=== PATIENT | female | born 1935 | race Caucasian/White ===

== ENCOUNTER 2016-05-28 11:01 | Inpatient (IN) ==
--- NOTE | 2016-05-28 13:11 | Internal Med History&Physical ---
Date of Encounter: 05/28/16 Time of Encounter: 13:09 Internal Medicine - H&P: HPI Chief complaint: Patient brought to [facility] rehabilitation status pos Admitted From: Hospital to Hospital Transfer Plans for Post Hospital Care: Home History of present illness: Ms. Moy is a 80 year old female She is here for rehabilitation. Past Med Surg Social Fam HX - Past Medical History Medical history: arthritis, hyperlipidemia, thyroid disease Psychiatric history: no psych history - Past Surgical History Surgical History: orthopedic, other (Patient knowledge is a right total shoulder replacement and colonoscopy) - Social History Smoking Status: Never smoker Smokeless Tobacco Status: No Alcohol use: none Drug use: none - Family History Mother Hx Family Cardiac Disorders: Yes Internal Medicine - H&P: Meds Aspirin Enteric Coated [Aspirin EC] 325 mg PO DAILY #21 tablet. 05/24/16 [Rx] OxyCODONE Immed Rel [Roxicodone 5 MG] 5 - 10 mg PO Q6HR PRN #40 tablet 05/24/16 [Rx] Aspirin 81 mg PO DAILY 05/25/16 [History] Atorvastatin Calcium [Lipitor] 20 mg PO HS 05/25/16 [History] Celecoxib [Celebrex] 200 mg PO DAILY 05/25/16 [History] Latanoprost [Xalatan] 1 drop BOTH EYES QPM 05/25/16 [History] Levothyroxine [Synthroid] 50 mcg PO 0630 05/25/16 [History] Meclizine HCl [Verticalm] 25 mg PO Q6H PRN 05/25/16 [History] Multivit-Min/FA/Lutein/Zeaxant [Icaps Mv Tablet] 2 tab PO DAILY 05/25/16 [ History] Psyllium [Metamucil Fiber Singles Packet] 1 packet PO DAILY 05/28/16 [History] Allergies No Known Allergies Allergy (Verified 05/25/16 08:34) All Systems PM: A 10-system review of systems was performed and is negative for pertinent findings except as documented above in the HPI. - Constitutional Vitals: Temp Pulse Resp BP Pulse Ox 97.9 F 75 18 110/70 95 05/28/16 11:38 05/28/16 11:38 05/28/16 11:38 05/28/16 11:38 05/28/16 11:38 - Head Head exam: Present: atraumatic, normocephalic - Neck Neck exam general surgery: Present: supple, trachea midline. Absent: lymphadenopathy - Respiratory Respiratory exam: Present: CTAB. Absent: accessory muscle use, rales, rhonchi, wheezes - Cardiovascular Cardiovascular exam: Present: RRR, +S1, +S2. Absent: diastolic murmur, gallop, rubs, systolic murmur - GI/Abdominal GI/Abdominal exam: Present: normal bowel sounds, soft, no peritoneal signs. Absent: distended, tenderness
[2016-05-28] MEDS: *HR* OxyCODONE/APAP 5/325 TABLET PO PRN ×2 (13:51→23:25)
[2016-05-28] MEDS ORDERED: Latanoprost 2.5 ML BOTTLE BOTH EYES SCH (18:00)
[2016-05-28] MEDS: Latanoprost 2.5 ML BOTTLE BOTH EYES SCH (20:19)
[2016-05-28] MEDS: MOM Conc 10 ML UD.LIQ PO PRN (20:20)
[2016-05-29 05:19] LABS: Basophils % 0.5 %; Eosinophils # 0.2 K/mcL (0.0-0.6); Eosinophils % 3.9 %; Hematocrit 23.5 % (35.3-44.9); Immature Granulocytes % 0.3 % (0-4); Lymphocytes # 1.2 K/mcL (0.6-4.6); Lymphocytes % 19.9 %; Mean Corpuscular Volume 91.1 fL (83.0-100.0); Monocytes # 0.9 K/mcL (0.0-1.3); Monocytes % 14.9 %; Neutrophils # 3.5 K/mcL (1.6-8.9); Platelet Count 168 K/mcL (140-400); Red Blood Count 2.58 M/mcL (3.82-4.97); Red Cell Distribution Width 12.4 % (11.5-14.5); Segmented Neutrophils % 60.5 %
[2016-05-29 05:20] LABS: INR 1.1; Prothrombin Time 12.4 Seconds (9.4-12.1)
[2016-05-29 05:23] LABS: Activated Partial Thrombo Time 28.6 Seconds (26.0-36.0)
[2016-05-29 05:28] LABS: BUN/Creatinine Ratio 25 (6-26); Blood Urea Nitrogen 16 mg/dL (7-20); Calcium 8.7 mg/dL (8.6-10.8); Carbon Dioxide 27 mEq/L (19-29); Chloride 101 mEq/L (98-109); Glucose 104 mg/dL (70-99); Osmolality,Calculated 285 (280-300); Potassium 4.4 mEq/L (3.5-4.5); Sodium 137 mEq/L (136-145); eGFR For African Americans > 60 (> 60); eGFR For Non-African Americans > 60 (> 60)
[2016-05-29] MEDS: *HR* OxyCODONE/APAP 5/325 TABLET PO PRN ×2 (06:10→12:53)
[2016-05-29] MEDS: Aspirin Enteric Coated 325 MG Tablet PO SCH (08:08)
[2016-05-29] MEDS: Psyllium 1 PACKET POWD.PACK PO SCH (08:08)
[2016-05-29] MEDS: Celecoxib 200 MG CAPSULE PO SCH (08:08)
[2016-05-29] MEDS: Multivit/Ca/Min/Fe/FA 1 TAB TABLET PO SCH (08:08)
[2016-05-29] MEDS: MOM Conc 10 ML UD.LIQ PO PRN (08:15)
[2016-05-29] MEDS: Latanoprost 2.5 ML BOTTLE BOTH EYES SCH (19:47)
[2016-05-30] MEDS: *HR* OxyCODONE/APAP 5/325 TABLET PO PRN ×4 (02:47→21:00)
[2016-05-30] MEDS: Multivit/Ca/Min/Fe/FA 1 TAB TABLET PO SCH (08:56)
[2016-05-30] MEDS: MOM Conc 10 ML UD.LIQ PO PRN (08:57)
[2016-05-30] MEDS: Psyllium 1 PACKET POWD.PACK PO SCH (08:57)
[2016-05-30] MEDS: Aspirin Enteric Coated 325 MG Tablet PO SCH (08:57)
[2016-05-30] MEDS: Celecoxib 200 MG CAPSULE PO SCH (08:57)
--- NOTE | 2016-05-30 17:29 | Internal Med Progress Note ---
Date of Encounter: 05/30/16 Time of Encounter: 17:27 - Time Spent With Patient less than 15 minutes - Subjective Interval history: Patient's states that she is doing well. Mild postop pain. She complains of constipation. No fever no shortness of breath no chest pain. Diagnosis. Status post right total knee replacement. Anemia. Today's hemoglobin is 8. Patient doing well with PT OT. We will continue to work on gait, balance in transfer. We will add Mag citrate for her constipation. - Constitutional Vitals: Temp Pulse Resp BP Pulse Ox 98.2 F 71 16 144/77 95 05/30/16 07:00 05/30/16 07:00 05/30/16 07:00 05/30/16 07:00 05/30/16 07:00 General appearance: Present: A&O X 3, pleasant, no acute distress - Respiratory Respiratory exam: Present: CTAB. Absent: accessory muscle use, rales, rhonchi, wheezes - Cardiovascular Cardiovascular exam: Present: RRR, +S1, +S2. Absent: diastolic murmur, gallop, rubs, systolic murmur - GI/Abdominal GI/Abdominal exam: Present: normal bowel sounds, soft, no peritoneal signs. Absent: distended, tenderness - Expanded Lower Extremities Exam Knee exam: Present: swelling, tenderness. Absent: erythema, warmth Internal Medicine: Result - Labs CBC & Chem 7: 05/29/16 05:05 05/29/16 05:05 - ABG Interpretation ABG results: PT/INR, D-dimer PT 12.4 Seconds (9.4-12.1) H 05/29/16 05:05 Consult Discharge Plan - Plan Instructions: Total Knee Replacement (DC) Additional Instructions: Discharge Instructions: Total Knee Replacement Please call [facility] ([phone]), your Primary Care Physician, or report to the Emergency Room if you have any of the following symptoms: Nausea, vomiting, fever greater that 101.5, swelling, chest pain, shortness of breath, increased pain/redness/drainage/odor for your incision site, numbness/ tingling, or any other concerning symptoms. ACTIVITY:Weight-bearing as tolerated. You may progress off support (cruthches or walker) as tolerated. MEDICATIONS: Upon discharge resume your home medications. Take all the medications as prescribed. Take a stool softener if taking narcotic pain medications. Stool softeners are only effective if you drink enough fluids. Drink 6-8 glass of water or fluids a day, unless this is not allowed for another health problem. Despite using stool softeners, if you haven't had a bowel movement in 3 days, please switch to a gentle laxative. Gentle laxatives are sold over the counter. You should have a bowel movement within 24 hours, if not call the office. You will be discharged from the hospital with a prescription for pain medication. You are encouraged to decrease the use of narcotic pain medication as tolerated. Should you require a refill, please call the office. [facility] prescribes narcotic pain medication for only 4-6 weeks after surgery. If you require pain medication beyond this time periord, you may be referred to your Primary Care Physician or to the Pain Clinic for further evaluation. Plan ahead for refills on pain medication as many narcotics either need to be picked up at the office or mailed. It is best to call 48-72 hours in advance of needing a prescription refill so you don't run out of medication. To help control the post-operative pain, you may take NSAIDs (Aleve,Advil, Motrin, ibuprofen, naprosyn) or Tylenol as prescribed on the bottle in addition to the pain medication. ANTICOAGULATION (blood thinners): Continue your Aspirin, Lovenox or Coumadin as prescribed to help prevent a blood clot in the leg or in the lungs. As long as your incision remains dry and you tolerate the NSAIDs (Aleve, Advil, Motrin, ibuprofen, naprosyn), it is OK to use the NSAIDS while you are taking your anticoagulation medication. Should your incision start to drain, stop the NSAID and contact our office. Common symptoms of blood clot in the legs include: localized pain, swelling, calf tenderness, redness or discoloration of the skin. Blood clot in the lung symptoms include: shortness of breath, rapid pulse, sweating, and chest pain that worsens with deep breathing, coughing up blood, lightheadedness, feelings of anxiety. If you experience any of these symptoms notify your physician immediately, go to the emergency room, or if having trouble breathing, call 911. WOUND CARE: Leave the dressing on for 7 days. You may change the dressing if it becomes saturated greater than 50%. You can shower but not a tub bath or submerge your incision in water. Wash your hands with antibacterial soap, rinse and dry prior to any wound care. If you have roverto the visiting nurse or rehab facility can remove the stapes 10-14 days after surgery [address] steri- strips across the wound. Leave the steri-strips in place until they fall off on their won. You may let water from the shower run on top of the steri-stirips. If you do not have a visiting nurse or rehab facility, you will need to return to the office at 10-14 days for the roverto to be removed. FOLLOW-UP: Please follow up with your surgeon in the orthopedic clinic in 4 weeks from the day of surgery. If you have roverto that need to be removed, you will need to come back to the office in 10-14 days from the day of surgery. Referrals: Tano Mcneil MD [Partnered Physician] - 06/23/16 8:30 am Nidhi Dorantes PAC [Physician Beck Operator] - 06/04/16 8:00 am Jared Moncada MD [Primary Care Provider] -
[2016-05-30] MEDS: Latanoprost 2.5 ML BOTTLE BOTH EYES SCH (21:01)
[2016-05-31] MEDS: *HR* OxyCODONE/APAP 5/325 TABLET PO PRN ×3 (03:36→23:36)
[2016-05-31] MEDS ORDERED: Tetrahydrozoline 15 ML BOTTLE RIGHT EYE PRN (08:39)
--- NOTE | 2016-05-31 09:03 | Internal Med Progress Note ---
Date of Encounter: 05/31/16 Time of Encounter: 09:03 - Time Spent With Patient less than 15 minutes - Subjective Interval history: Patient's states that she is doing well. Mild postop pain. She complains of constipation. No fever no shortness of breath no chest pain. Diagnosis. Status post right total knee replacement. Anemia. Today's hemoglobin is 8. Patient doing well with PT OT. We will continue to work on gait, balance in transfer. We will add Mag citrate for her constipation. - Constitutional Vitals: Temp Pulse Resp BP Pulse Ox 99.7 F H 77 18 159/80 96 05/31/16 07:00 05/31/16 07:00 05/31/16 07:00 05/31/16 07:00 05/31/16 07:00 General appearance: Present: A&O X 3, pleasant, no acute distress - Respiratory Respiratory exam: Present: CTAB. Absent: accessory muscle use, rales, rhonchi, wheezes - Cardiovascular Cardiovascular exam: Present: RRR, +S1, +S2. Absent: diastolic murmur, gallop, rubs, systolic murmur - GI/Abdominal GI/Abdominal exam: Present: normal bowel sounds, soft, no peritoneal signs. Absent: distended, tenderness - Expanded Lower Extremities Exam Knee exam: Present: tenderness. Absent: effusion, warmth Internal Medicine: Result - Labs CBC & Chem 7: 05/29/16 05:05 05/29/16 05:05 - ABG Interpretation ABG results: PT/INR, D-dimer PT 12.4 Seconds (9.4-12.1) H 05/29/16 05:05 Consult Discharge Plan - Plan Instructions: Total Knee Replacement (DC) Additional Instructions: Discharge Instructions: Total Knee Replacement Please call [facility] ([phone]), your Primary Care Physician, or report to the Emergency Room if you have any of the following symptoms: Nausea, vomiting, fever greater that 101.5, swelling, chest pain, shortness of breath, increased pain/redness/drainage/odor for your incision site, numbness/ tingling, or any other concerning symptoms. ACTIVITY:Weight-bearing as tolerated. You may progress off support (cruthches or walker) as tolerated. MEDICATIONS: Upon discharge resume your home medications. Take all the medications as prescribed. Take a stool softener if taking narcotic pain medications. Stool softeners are only effective if you drink enough fluids. Drink 6-8 glass of water or fluids a day, unless this is not allowed for another health problem. Despite using stool softeners, if you haven't had a bowel movement in 3 days, please switch to a gentle laxative. Gentle laxatives are sold over the counter. You should have a bowel movement within 24 hours, if not call the office. You will be discharged from the hospital with a prescription for pain medication. You are encouraged to decrease the use of narcotic pain medication as tolerated. Should you require a refill, please call the office. [facility] prescribes narcotic pain medication for only 4-6 weeks after surgery. If you require pain medication beyond this time periord, you may be referred to your Primary Care Physician or to the Pain Clinic for further evaluation. Plan ahead for refills on pain medication as many narcotics either need to be picked up at the office or mailed. It is best to call 48-72 hours in advance of needing a prescription refill so you don't run out of medication. To help control the post-operative pain, you may take NSAIDs (Aleve,Advil, Motrin, ibuprofen, naprosyn) or Tylenol as prescribed on the bottle in addition to the pain medication. ANTICOAGULATION (blood thinners): Continue your Aspirin, Lovenox or Coumadin as prescribed to help prevent a blood clot in the leg or in the lungs. As long as your incision remains dry and you tolerate the NSAIDs (Aleve, Advil, Motrin, ibuprofen, naprosyn), it is OK to use the NSAIDS while you are taking your anticoagulation medication. Should your incision start to drain, stop the NSAID and contact our office. Common symptoms of blood clot in the legs include: localized pain, swelling, calf tenderness, redness or discoloration of the skin. Blood clot in the lung symptoms include: shortness of breath, rapid pulse, sweating, and chest pain that worsens with deep breathing, coughing up blood, lightheadedness, feelings of anxiety. If you experience any of these symptoms notify your physician immediately, go to the emergency room, or if having trouble breathing, call 911. WOUND CARE: Leave the dressing on for 7 days. You may change the dressing if it becomes saturated greater than 50%. You can shower but not a tub bath or submerge your incision in water. Wash your hands with antibacterial soap, rinse and dry prior to any wound care. If you have roverto the visiting nurse or rehab facility can remove the stapes 10-14 [address] surgery [address] steri- strips across the wound. Leave the steri-strips in place until they fall off on their won. You may let water from the shower run on top of the steri-stirips. If you do not have a visiting nurse or rehab facility, you will need to return to the office at 10-14 days for the roverto to be removed. FOLLOW-UP: Please follow up with your surgeon in the orthopedic clinic in 4 weeks from the day of surgery. If you have roverto that need to be removed, you will need to come back to the office in 10-14 days from the day of surgery. Referrals: Tano Mcneil MD [Partnered Physician] - 06/23/16 8:30 am Nidhi Dorantes PAC [Physician Crystal Lapper] - 06/04/16 8:00 am Jared Moncada MD [Primary Care Provider] -
[2016-05-31] MEDS: MOM Conc 10 ML UD.LIQ PO PRN (09:13)
[2016-05-31] MEDS: Celecoxib 200 MG CAPSULE PO SCH (09:13)
[2016-05-31] MEDS: Multivit/Ca/Min/Fe/FA 1 TAB TABLET PO SCH (09:13)
[2016-05-31] MEDS: Aspirin Enteric Coated 325 MG Tablet PO SCH (09:13)
[2016-05-31] MEDS: Psyllium 1 PACKET POWD.PACK PO SCH (09:14)
[2016-05-31] MEDS: Latanoprost 2.5 ML BOTTLE BOTH EYES SCH (20:30)
[2016-06-01 05:28] LABS: Basophils % 0.7 %; Eosinophils # 0.3 K/mcL (0.0-0.6); Eosinophils % 5.3 %; Hemoglobin 8.4 g/dL (11.5-15.4); Immature Granulocytes % 0.2 % (0-4); Lymphocytes # 1.4 K/mcL (0.6-4.6); Lymphocytes % 22.6 %; Mean Corpuscular HGB Conc 33.6 g/dL (31.6-35.5); Mean Corpuscular Hemoglobin 30.7 pg (28.0-33.3); Mean Corpuscular Volume 91.2 fL (83.0-100.0); Monocytes # 0.8 K/mcL (0.0-1.3); Monocytes % 12.8 %; Neutrophils # 3.5 K/mcL (1.6-8.9); Platelet Count 291 K/mcL (140-400); Red Blood Count 2.74 M/mcL (3.82-4.97); Red Cell Distribution Width 12.5 % (11.5-14.5); Segmented Neutrophils % 58.4 %
[2016-06-01 05:38] LABS: BUN/Creatinine Ratio 26 (6-26); Blood Urea Nitrogen 16 mg/dL (7-20); Calcium 8.8 mg/dL (8.6-10.8); Carbon Dioxide 26 mEq/L (19-29); Chloride 102 mEq/L (98-109); Glucose 107 mg/dL (70-99); Osmolality,Calculated 284 (280-300); Potassium 4.8 mEq/L (3.5-4.5); Sodium 136 mEq/L (136-145); eGFR For African Americans > 60 (> 60); eGFR For Non-African Americans > 60 (> 60)
[2016-06-01] MEDS: Celecoxib 200 MG CAPSULE PO SCH (09:08)
[2016-06-01] MEDS: Multivit/Ca/Min/Fe/FA 1 TAB TABLET PO SCH (09:08)
[2016-06-01] MEDS: Aspirin Enteric Coated 325 MG Tablet PO SCH (09:08)
[2016-06-01] MEDS: Psyllium 1 PACKET POWD.PACK PO SCH ×2 (09:09→15:21)
--- NOTE | 2016-06-01 13:23 | Internal Med Progress Note ---
Date of Encounter: 06/01/16 Time of Encounter: 13:21 - Subjective Interval history: Besides doing very well will be discharged tomorrow after therapy. Will have a prescription pain meds and follow-up surgical - Constitutional Vitals: Temp Pulse Resp BP Pulse Ox 98.0 F 73 17 131/78 96 06/01/16 07:00 06/01/16 07:00 06/01/16 07:00 06/01/16 07:00 06/01/16 07:00 General appearance: Present: A&O X 3, pleasant, no acute distress - Head Head exam: Present: atraumatic, normal inspection, normocephalic - Neck Neck exam general surgery: Present: supple, trachea midline. Absent: lymphadenopathy - Respiratory Respiratory exam: Present: CTAB. Absent: accessory muscle use, rales, rhonchi, wheezes - Cardiovascular Cardiovascular exam: Present: RRR, +S1, +S2. Absent: diastolic murmur, gallop, rubs, systolic murmur Internal Medicine: Result - Labs CBC & Chem 7: 06/01/16 05:05 06/01/16 05:05 Labs: Short CBC 06/01/16 Range/Units 05:05 WBC 6.0 (4.3-11.1) K/mcL Hgb 8.4 L (11.5-15.4) g/dL Hct 25.0 L (35.3-44.9) % Plt Count 291 D (140-400) K/mcL Neutrophils # 3.5 (1.6-8.9) K/mcL BMP 06/01/16 05:05 Sodium 136 Potassium 4.8 H Chloride 102 Carbon Dioxide 26 BUN 16 Creatinine 0.61 Glucose 107 H Calcium 8.8 Labs look stable - ABG Interpretation ABG results: PT/INR, D-dimer PT 12.4 Seconds (9.4-12.1) H 05/29/16 05:05 Consult Discharge Plan - Plan Instructions: Total Knee Replacement (DC) Additional Instructions: Discharge Instructions: Total Knee Replacement Please call [facility] ([phone]), your Primary Care Physician, or report to the Emergency Room if you have any of the following symptoms: Nausea, vomiting, fever greater that 101.5, swelling, chest pain, shortness of breath, increased pain/redness/drainage/odor for your incision site, numbness/ tingling, or any other concerning symptoms. ACTIVITY:Weight-bearing as tolerated. You may progress off support (cruthches or walker) as tolerated. MEDICATIONS: Upon discharge resume your home medications. Take all the medications as prescribed. Take a stool softener if taking narcotic pain medications. Stool softeners are only effective if you drink enough fluids. Drink 6-8 glass of water or fluids a day, unless this is not allowed for another health problem. Despite using stool softeners, if you haven't had a bowel movement in 3 days, please switch to a gentle laxative. Gentle laxatives are sold over the counter. You should have a bowel movement within 24 hours, if not call the office. You will be discharged from the hospital with a prescription for pain medication. You are encouraged to decrease the use of narcotic pain medication as tolerated. Should you require a refill, please call the office. [facility] prescribes narcotic pain medication for only 4-6 weeks after surgery. If you require pain medication beyond this time periord, you may be referred to your Primary Care Physician or to the Pain Clinic for further evaluation. Plan ahead for refills on pain medication as many narcotics either need to be picked up at the office or mailed. It is best to call 48-72 hours in advance of needing a prescription refill so you don't run out of medication. To help control the post-operative pain, you may take NSAIDs (Aleve,Advil, Motrin, ibuprofen, naprosyn) or Tylenol as prescribed on the bottle in addition to the pain medication. ANTICOAGULATION (blood thinners): Continue your Aspirin, Lovenox or Coumadin as prescribed to help prevent a blood clot in the leg or in the lungs. As long as your incision remains dry and you tolerate the NSAIDs (Aleve, Advil, Motrin, ibuprofen, naprosyn), it is OK to use the NSAIDS while you are taking your anticoagulation medication. Should your incision start to drain, stop the NSAID and contact our office. Common symptoms of blood clot in the legs include: localized pain, swelling, calf tenderness, redness or discoloration of the skin. Blood clot in the lung symptoms include: shortness of breath, rapid pulse, sweating, and chest pain that worsens with deep breathing, coughing up blood, lightheadedness, feelings of anxiety. If you experience any of these symptoms notify your physician immediately, go to the emergency room, or if having trouble breathing, call 911. WOUND CARE: Leave the dressing on for 7 days. You may change the dressing if it becomes saturated greater than 50%. You can shower but not a tub bath or submerge your incision in water. Wash your hands with antibacterial soap, rinse and dry prior to any wound care. If you have roverto the visiting nurse or rehab facility can remove the stapes 10-14 days [address] surgery [address] steri- strips across the wound. Leave the steri-strips in place until they fall off on their won. You may let water from the shower run on top of the steri-stirips. If you do not have a visiting nurse or rehab facility, you will need to return to the office at 10-14 days for the roverto to be removed. FOLLOW-UP: Please follow up with your surgeon in the orthopedic clinic in 4 weeks from the day of surgery. If you have roverto that need to be removed, you will need to come back to the office in 10-14 days from the day of surgery. Referrals: Tano Mcneil MD [Partnered Physician] - 06/23/16 8:30 am Nidhi Dorantes PAC [Physician Sleeping Room Cleaner] - 06/04/16 8:00 am Jared Moncada MD [Primary Care Provider] -
[2016-06-01] MEDS: Latanoprost 2.5 ML BOTTLE BOTH EYES SCH (21:16)
[2016-06-01] MEDS: *HR* OxyCODONE/APAP 5/325 TABLET PO PRN (23:40)
[2016-06-02 07:29] VITALS: BP 130/61
[2016-06-02] MEDS: Aspirin Enteric Coated 325 MG Tablet PO SCH (07:57)
[2016-06-02] MEDS: Psyllium 1 PACKET POWD.PACK PO SCH (07:57)
[2016-06-02] MEDS: Multivit/Ca/Min/Fe/FA 1 TAB TABLET PO SCH (07:57)
[2016-06-02] MEDS: Celecoxib 200 MG CAPSULE PO SCH (07:57)
--- NOTE | 2016-06-02 11:38 | Discharge Summary ---
Date of Encounter: 06/02/16 Time of Encounter: 11:36 - Discharge Medications Home Medications: Aspirin Enteric Coated [Aspirin EC] 325 mg PO DAILY #21 tablet. 05/24/16 [Rx] OxyCODONE Immed Rel [Roxicodone 5 MG] 5 - 10 mg PO Q6HR PRN #40 tablet 05/24/16 [Rx] Aspirin 81 mg PO DAILY 05/25/16 [History] Atorvastatin Calcium [Lipitor] 20 mg PO HS 05/25/16 [History] Celecoxib [Celebrex] 200 mg PO DAILY 05/25/16 [History] Latanoprost [Xalatan] 1 drop BOTH EYES QPM 05/25/16 [History] Levothyroxine [Synthroid] 50 mcg PO 0630 05/25/16 [History] Meclizine HCl [Verticalm] 25 mg PO Q6H PRN 05/25/16 [History] Multivit-Min/FA/Lutein/Zeaxant [Icaps Mv Tablet] 2 tab PO DAILY 05/25/16 [ History] Psyllium [Metamucil Fiber Singles Packet] 1 packet PO DAILY 05/28/16 [History] Allergies/Adverse Reactions: Allergies No Known Allergies Allergy (Verified 05/25/16 08:34) Date of admission: 05/28/16 11:02 Primary care physician: Jared Moncada MD Consults: 05/28/16 12:54 Consult to Occupational Therapy [CONS] Routine Comment: Evaluate, develop and implement POC Consult to Physical Medicine/Rehab [CONS] Routine Reason for Consult: s/p right total knee Call Completed: Yes Consult to Physical Therapy [CONS] Routine Comment: Evaluate, develop and implement POC Consult to Recreational Therapy [CONS] Routine Comment: Evaluate, develop and implement POC Consult to Regulator Mechanic [CONS] Routine Reason for SW Consult: d/c planning s/p rtk Discharging clinician: Deven Saucedo - Patient Status Disposition: Home, Self-Care Condition: Good Functional capacity at discharge: uses cane/walker Overall status at discharge: patient is progressing back to baseline - Discharge Instructions Instructions: Total Knee Replacement (DC) Follow Up With: Tano Mcneil MD [Partnered Physician] - 06/23/16 8:30 am Nidhi Dorantes PAC [Physician Rn Telephonic] - 06/04/16 8:00 am Jared Moncada MD [Primary Care Provider] - Additional Instructions: Discharge Instructions: Total Knee Replacement Please call [facility] ([phone]), your Primary Care Physician, or report to the Emergency Room if you have any of the following symptoms: Nausea, vomiting, fever greater that 101.5, swelling, chest pain, shortness of breath, increased pain/redness/drainage/odor for your incision site, numbness/ tingling, or any other concerning symptoms. ACTIVITY:Weight-bearing as tolerated. You may progress off support (cruthches or walker) as tolerated. MEDICATIONS: Upon discharge resume your home medications. Take all the medications as prescribed. Take a stool softener if taking narcotic pain medications. Stool softeners are only effective if you drink enough fluids. Drink 6-8 glass of water or fluids a day, unless this is not allowed for another health problem. Despite using stool softeners, if you haven't had a bowel movement in 3 days, please switch to a gentle laxative. Gentle laxatives are sold over the counter. You should have a bowel movement within 24 hours, if not call the office. You will be discharged from the hospital with a prescription for pain medication. You are encouraged to decrease the use of narcotic pain medication as tolerated. Should you require a refill, please call the office. [facility] prescribes narcotic pain medication for only 4-6 weeks after surgery. If you require pain medication beyond this time periord, you may be referred to your Primary Care Physician or to the Pain Clinic for further evaluation. Plan ahead for refills on pain medication as many narcotics either need to be picked up at the office or mailed. It is best to call 48-72 hours in advance of needing a prescription refill so you don't run out of medication. To help control the post-operative pain, you may take NSAIDs (Aleve,Advil, Motrin, ibuprofen, naprosyn) or Tylenol as prescribed on the bottle in addition to the pain medication. ANTICOAGULATION (blood thinners): Continue your Aspirin, Lovenox or Coumadin as prescribed to help prevent a blood clot in the leg or in the lungs. As long as your incision remains dry and you tolerate the NSAIDs (Aleve, Advil, Motrin, ibuprofen, naprosyn), it is OK to use the NSAIDS while you are taking your anticoagulation medication. Should your incision start to drain, stop the NSAID and contact our office. Common symptoms of blood clot in the legs include: localized pain, swelling, calf tenderness, redness or discoloration of the skin. Blood clot in the lung symptoms include: shortness of breath, rapid pulse, sweating, and chest pain that worsens with deep breathing, coughing up blood, lightheadedness, feelings of anxiety. If you experience any of these symptoms notify your physician immediately, go to the emergency room, or if having trouble breathing, call 911. WOUND CARE: Leave the dressing on for 7 days. You may change the dressing if it becomes saturated greater than 50%. You can shower but not a tub bath or submerge your incision in water. Wash your hands with antibacterial soap, rinse and dry prior to any wound care. If you have roverto the visiting nurse or rehab facility can remove the stapes 10-14 days after surgery and place steri- strips across the wound. Leave the steri-strips in place until they fall off on their won. You may let water from the shower run on top of the steri-stirips. If you do not have a visiting nurse or rehab facility, you will need to return to the office at 10-14 days for the roverto to be removed. FOLLOW-UP: Please follow up with your surgeon in the orthopedic clinic in 4 weeks from the day of surgery. If you have roverto that need to be removed, you will need to come back to the office in 10-14 days from the day of surgery. - Diet and Activity Activity: ambulate only with your walker Diet: advance to your usual diet Interval History: Patient was admitted after a total knee replacement for osteoarthritis. Hospital course: Ms. Moy is a 80 year old female Patient worked with PT OT DTRs done well ambulating about the unit with her walker. She will be discharged today in company of her - Time Spent with Patient Total time spent providing and/or coordinating discharge services: Less than 30 minutes - Constitutional Vitals: Temp Pulse Resp BP Pulse Ox 98.3 F 69 20 130/61 96 06/02/16 07:00 06/02/16 07:00 06/02/16 07:00 06/02/16 07:00 06/02/16 07:00 General appearance: Present: A&O X 3, pleasant, no acute distress - Head Head exam: Present: atraumatic, normal inspection, normocephalic - Neck Neck exam general surgery: Present: supple, trachea midline. Absent: lymphadenopathy - Respiratory Respiratory exam: Present: CTAB. Absent: accessory muscle use, rales, rhonchi, wheezes - Cardiovascular Cardiovascular exam: Present: RRR, +S1, +S2. Absent: diastolic murmur, gallop, rubs, systolic murmur
[2016-06-02] MEDS: *HR* OxyCODONE/APAP 5/325 TABLET PO PRN (12:53)
== END 2016-06-02 13:48 | disposition home or self-care (01) | DRG 561 ==
LOC: INPGRE 11:02
PROVIDERS: ADMIT Internal Medicine; ATTEND Internal Medicine